=== PATIENT | female | born 1985 | race Native Hawaiian/Other Pacific Islander ===

== ENCOUNTER 2017-10-21 11:11 | Emergency (ER) | payer BC ==
[2017-10-21 11:22] VITALS: O2SAT 98
--- NOTE | 2017-10-21 11:57 | ED PDOC ---
HPI: General Adult Time Seen by Provider: 10/21/17 11:55 Chief Complaint (Nursing): Syncope Chief Complaint (Provider): difficulty speaking History Per: Patient (31 y/o female 20 week here for difficulty speaking after presumptive anxiety attack yesterday. Patient has written that she was in [place] at work yesterday and noted anxiety/chest pain and syncope. Subsequently has had difficulty expressing self. Has no h/o psych illness.) Past Medical History Reviewed: Historical Data, Nursing Documentation, Vital Signs Vital Signs: Last Vital Signs Temp 98.5 F 10/21/17 11:21 Pulse 108 H 10/21/17 11:21 Resp 21 10/21/17 11:21 BP 124/80 10/21/17 11:21 Pulse Ox 98 10/21/17 15:17 - Home Medications Home Medications: Ambulatory Orders Medication Instructions Recorded Nitrofurantoin Macrocrystals 100 mg PO BID #13 cap 10/21/17 [Macrobid] - Allergies Allergies/Adverse Reactions: Allergies Allergy/AdvReac Type Severity Reaction Status Date / Time No Known Allergies Allergy Verified 10/21/17 11:39 Review of Systems ROS Statement: Except As Marked, All Systems Reviewed And Found Negative Physical Exam - Reviewed Nursing Documentation Reviewed: Yes Vital Signs Reviewed: Yes - Physical Exam Appears: Positive for: Well, Non-toxic, No Acute Distress Head Exam: Positive for: ATRAUMATIC, NORMAL INSPECTION, NORMOCEPHALIC Skin: Positive for: Normal Color, Warm, DRY Eye Exam: Positive for: EOMI, Normal appearance, PERRL ENT: Positive for: Normal ENT Inspection Neck: Positive for: Normal, Painless ROM Cardiovascular/Chest: Positive for: Regular Rate, Rhythm Respiratory: Positive for: CNT, Normal Breath Sounds Gastrointestinal/Abdominal: Positive for: Normal Exam, Soft Back: Positive for: Normal Inspection Extremity: Positive for: Normal ROM Neurologic/Psych: Positive for: Alert, Oriented - Laboratory Results Result Diagrams: 10/21/17 12:00 10/21/17 12:00 - ECG O2 Sat by Pulse Oximetry: 98 - Progress ED Course And Treament: D/W DR. KENNEY. STATES PATIENT IS ABLE TO WRITE, PSYCHOGENIC NOT NEUROLOGIC. mri of brain w/o contrast: IMPRESSION: Limited white-matter abnormalities are appreciate the bilateral frontal greater than bilateral parietal lobes sparing the corpus callosum and remainder of the brain. Differential diagnosis listed above. Follow-up contrast MRI can be performed now or on elective basis. No acute or subacute brain infarction, mass effect or definite intracranial hemorrhage appreciable. SEEN BY ARI D/W HEBER CONVERSION DISORDER Disposition - Clinical Impression Clinical Impression: Conversion disorder - Patient ED Disposition Is Patient to be Admitted: No - Disposition Referrals: Bill Kenney MD [Medical Doctor] - Disposition: Routine/Home Disposition Time: 17:28 Condition: FAIR Prescriptions: Nitrofurantoin Macrocrystals [Macrobid] 100 mg PO BID #13 cap Instructions: Conversion Disorder, Urinary Tract Infections in Adults Forms: [facility] [facility] (Bulgarian)
[2017-10-21 12:17] LABS: BASO % 0.4 % (0.0-2.0); EOS # 0.1 K/uL (0.0-0.7); EOS % 0.7 % (0.0-4.0); HEMOGLOBIN 11.6 g/dL (12.0-16.0); LYMPH # 1.9 K/uL (1.0-4.3); LYMPH % 22.1 % (20.0-40.0); MEAN CELL VOLUME 79.4 fl (81.0-99.0); MEAN CORPUSCULAR HEMOGLOBIN 27.2 pg (27.0-31.0); MEAN CORPUSCULAR HGB CONC 34.2 g/dL (33.0-37.0); MEAN PLATELET VOLUME 7.6 fl (7.2-11.7); MONO # 0.6 K/uL (0.0-0.8); MONO % 6.7 % (0.0-10.0); NEUT # 5.9 K/uL (1.8-7.0); NEUT % 70.1 % (50.0-75.0); RBC 4.28 Mil/uL (3.80-5.20); RED CELL DISTRIBUTION WIDTH 13.5 % (11.5-14.5); WHITE BLOOD COUNT 8.4 K/uL (4.8-10.8)
[2017-10-21 12:23] LABS: ALB/GLOB RATIO 1.1 (1.0-2.1); ALBUMIN 3.8 g/dL (3.5-5.0); ALT/SGPT 30 U/L (9-52); AST/SGOT 19 U/L (14-36); BLOOD UREA NITROGEN 7 mg/dl (7-17); CALCIUM 9.6 mg/dL (8.4-10.2); GFR AFRICAN-AMERICAN > 60; GFR NON-AFRICAN AMERICAN > 60
[2017-10-21 12:51] LABS: SQUAMOUS EPITHIAL 15 /hpf (0-5); URINE BACTERIA MOD (<OCC); URINE BILIRUBIN NEGATIVE (NEGATIVE); URINE BLOOD NEGATIVE (NEGATIVE); URINE CLARITY CLOUDY (Clear); URINE COLOR YELLOW (YELLOW); URINE GLUCOSE (UA) NEG (Normal); URINE LEUKOCYTE ESTERASE TRACE Leu/uL (Negative); URINE PROTEIN NEGATIVE (NEGATIVE); URINE UROBILINOGEN 0.2-1.0 mg/dL (0.2-1.0)
[2017-10-21 13:12] LABS: BARBITURATES, UR NEGATIVE (NEGATIVE); BENZODIAZEPINES, UR NEGATIVE (NEGATIVE); OPIATES, UR NEGATIVE (NEGATIVE); PHENCYCLIDINE, UR NEGATIVE (NEGATIVE)
--- NOTE | 2017-10-21 14:52 | MRI ---
PROCEDURE: MRI BRAIN WITHOUT CONTRAST HISTORY: INABILITY TO SPEAK COMPARISON: None. TECHNIQUE: Multiplanar, multisequence MR images of the brain were obtained without intravenous contrast enhancement. FINDINGS: HEMORRHAGE: None DWI: No evidence of an acute or early subacute infarction. BRAIN PARENCHYMA: There are a few punctate subcortical white matter long TR hyperintensities identified in the bilateral frontal and occasional bilateral parietal lobes posteriorly which are nonspecific. The corpus callosum and remaining white matter appear normal including the infratentorial compartment. No suspicious burgos matter signal abnormality and there is no mass effect. The pattern is nonspecific and could reflect hypertensive or migraine headache related white-matter change. If the patient is diabetic or has some other vasculopathy related disorder, it could reflect even microangiopathy. Demyelination Lyme disease and others are not excluded. Follow-up contrast MRI is advised despite the limited amount of findings in this case. No suspicious extra-axial fluid collection is identified in the midline brain anatomy is unremarkable. Pituitary gland appears normal. VENTRICLES: Unremarkable. No hydrocephalus. CRANIUM: Unremarkable. ORBITS: Grossly unremarkable. PARANASAL SINUSES/MASTOIDS: Clear VASCULAR SYSTEM: Skull base flow voids intact. OTHER FINDINGS: None. IMPRESSION: Limited white-matter abnormalities are appreciate the bilateral frontal greater than bilateral parietal lobes sparing the corpus callosum and remainder of the brain. Differential diagnosis listed above. Follow-up contrast MRI can be performed now or on elective basis. No acute or subacute brain infarction, mass effect or definite intracranial hemorrhage appreciable.
[2017-10-21 17:49] VITALS: PULSE 78; RESP 19
[2017-10-21 17:52] VITALS: BP 126/78; TEMP 97
--- NOTE | 2017-10-22 11:35 | CARD ---
APPROVED REPORT EKG Measurement Heart [id number] <Conclusion> Normal sinus rhythm with sinus arrhythmia Normal ECG
== END 2017-10-21 17:52 | disposition home or self-care (01) ==
LOC: H.ER 11:11
DX: F44.9 Dissociative and conversion disorder, unspecified (principal); O26.892 Other specified pregnancy related conditions, second trimester; O99.342 Other mental disorders complicating pregnancy, second trimester; F41.9 Anxiety disorder, unspecified; Z3A.20 20 weeks gestation of pregnancy
CPT/HCPCS: 70551; 80053; 81003; 81025; 83735; 84443; 84484; 85025; 87086; 93005; 99285; G0480